=== PATIENT | male | born 1985 | race Caucasian/White ===

== ENCOUNTER 2018-02-01 08:20 | Emergency (ER) | payer OTHER, SELFPAY ==
[2018-02-01 08:38] VITALS: BP 126/72; PULSE 80; RESP 16; TEMP 37; O2SAT 100
--- NOTE | 2018-02-01 09:09 | ED.GENADULT ---
HPI - General Adult General Chief complaint: Diabetic Problem Stated complaint: PT STATES DIABETES Time Seen by Provider: 02/01/18 08:37 Source: patient Mode of arrival: ambulatory Limitations: no limitations History of Present Illness HPI narrative: Otherwise healthy 32-year-old insulin-dependent diabetic male here for evaluation. 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 Patient states that this has happened to him a couple times in the past but only recently. Patient states that he takes Novolin N 20 units in the morning and Novolin R 10 units at the same time and then goes in eats breakfast then takes Novolin R 3 to 5 units after lunch and Novolin R 3 to 5 units after dinner with a sliding scale of 2 units for every 50 above 150. Patient states that earlier this week he took his morning Novolin N and Novolin R dose. States that he ate breakfast. States that after that there was an episode where he apparently became hypoglycemic on the ship. [employer] was called. They came to the ship he says next thing he remembers is the [employer] being around him. He states that he was told that his blood sugar was less than 60. He was [employer] off off the ship. Is new to the area. Does not have a primary doctor. Was sent for evaluation by his company to come up with a plan. He is not scheduled to return to the ship for more than a month. Currently patient has no symptoms. Related Data Home Medications Medication Instructions Recorded Confirmed Novolin N NPH U-100 Insulin 20 unit SUB-Q DAILY 02/01/18 02/01/18 Novolin R Regular U-100 Insuln 10 unit SUB-Q TID 02/01/18 02/01/18 Previous Rx's Medication Instructions Recorded glucagon (human recombinant) 1 mg SUBCUT Q20M PRN #1 each 02/01/18 Allergies Allergy/AdvReac Type Severity Reaction Status Date / Time albuterol AdvReac Rash Verified 02/01/18 08:55 Review of Systems Constitutional Denies chills, Denies fever(s), Denies lethargy and Denies weakness Cardiovascular Denies chest pain, Denies irregular heart rhythm, Denies lightheadedness, Denies palpitations, Denies dyspnea, Denies dyspnea on exertion and Denies orthopnea Respiratory Denies cough, Denies dyspnea, Denies dyspnea on exertion and Denies wheezing Gastrointestinal Gastrointestinal: Denies abdominal pain, Denies change in bowel habits, Denies diarrhea, Denies nausea and Denies vomiting Musculoskeletal Denies back pain, Denies muscle weakness, Denies numbness and Denies tingling Integumentary/Breasts Denies pruritus, Denies erythema, Denies rash and Denies wounds Neurologic Denies numbness, Denies tingling and Denies weakness Endocrine Denies palpitations Hematologic/Lymphatic Denies easy bruising Allergic/Immunologic Denies wheezing [facility] Social History Smoking Status: Current every day smoker Exam Const General: cooperative and well developed Nutritional Appearance: well nourished Orientation: alert, awake, oriented x3 and not confused Resp Effort & Inspection: normal respiratory effort, able to speak in complete sentences, no respiratory distress and no use of accessory muscles Auscultation: clear to auscultation bilaterally, no rales, no rhonchi and no wheezes Cardio Rate: regular rate Rhythm: regular rhythm Heart Sounds: no click, no gallops, no murmurs and no rubs Pulses: normal peripheral pulses GI Inspection: non-distended Palpation: soft, no hepatosplenomegaly, No guarding, No pulsatile mass and No tender Auscultation: normal bowel sounds Skin General: no rashes or lesions noted, No jaundice and No petechiae Neuro General: alert, oriented x3, gait normal and no focal motor deficits Speech: speech normal Motor: strength 5/5 throughout Sensory Exam: no sensory deficits noted Extrem General: full ROM, no clubbing, cyanosis or edema, no pedal edema and no calf tenderness Medical Decision Making MDM Narrative Medical decision making narrative: Patient is currently asymptomatic. 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 After long discussion we discussed the importance of him finding a primary care doctor here in the area for long-term treatment of his diabetes. He expressed understanding. He does have an e-mail from his [email or web address] that states that they will help him find a doctor. Until then patient is not scheduled to return to the ship for greater than a month. We came up with a plan for him to change his insulin dosages around. It appears that both of the incidences on the ship were after his morning dose of insulin after breakfast but he was performing a job that required high amount of physical exertion. I suspect that his morning insulin doses are too much and that he is burning through his glucose does causing his issues. He states that his morning blood glucose level is normally between 70 and 110. These events of never happened after lunch or dinner. Decision was made for patient to continue his normal 20 units of Novolin N however to drop his dose of 10 units of Novolin R from 10-5 and then for him to monitor his glucose to see if he starts to run excessively high. Being that his job is in an [place] environment a feel that him running a little high when his glucose is better than him running too low. He was given return precautions. He expressed understanding of the plan. Course Last Vital Signs Temp 98.6 F 02/01/18 08:38 Pulse 80 02/01/18 08:38 Resp 16 02/01/18 08:38 BP 126/72 H 02/01/18 08:38 Pulse Ox 100 02/01/18 08:38 Discharge Plan Departure Patient Disposition: Home, Self-Care Clinical Impression: Diabetes mellitus Instructions: Complications of Diabetes (Alternative Therapy) Activity Restrictions/Additional Instructions: Like we discussed here in the emergency department is important that you find a local primary care doctor to help you with long-term management of your diabetes. The plan with going forward is for you to continue your 20 units of Novolin N in the morning but dropped the Novolin R dose to 5 units and then have breakfast. Monitor your blood sugars after this to see if you running excessively high. Would also recommend that your lunch and dinner dose of Novolin RU dropped to 3 units a with a sliding scale of 2 units for every 50 above 150. Monitor blood sugars closely as you do this. Return to the emergency department for any new or worsening symptoms Prescriptions: New glucagon (human recombinant) 1 mg kit 1 mg SUBCUT Q20M PRN (Reason: hypoglycemia) Qty: 1 RF: 0 No Action Novolin N NPH U-100 Insulin 20 unit Sub-Q DAILY RF: 0 Novolin R Regular U-100 Insuln 10 unit Sub-Q TID RF: 0
[2018-02-01 10:10] VITALS: BP 134/65; PULSE 83; O2SAT 98
== END 2018-02-01 10:12 | disposition home or self-care (01) ==
PROVIDERS: Emergency Provider Emergency Medicine
DX: E11.9 Type 2 diabetes mellitus without complications (principal)
CPT/HCPCS: 82962; 99282

== ENCOUNTER → 2018-03-10 12:29 | Outpatient (CLI) | payer BC, SELFPAY ==
[2018-03-10 13:03] LABS: Add Manual Diff / Slide Review NO; Basophils Percent Auto 0.6 % (0-2); Eosinophils Percent Auto 1.7 % (2-4); Hematocrit 43.9 % (41-53); Hemoglobin 15.3 g/dL (13.5-17.5); Mean Corpuscular HGB Conc 34.8 % (30-36); Monocytes Percent Auto 7.1 % (3-14); Neutrophils Absolute Auto 3800 /uL (3000-5900); Neutrophils Percent Auto 60.6 % (50-75); Platelet Count 262 X10^3/uL (150-400); Red Blood Cell Count 4.77 X10^6/uL (4.5-5.9); Red Cell Distribution Width 14.3 % (11.6-14.8); White Blood Cell Count 6.3 X10^3/uL (4.5-11.0)
[2018-03-10 13:14] LABS: Hemoglobin A1C% w Est Avg Glu 8.1 % (4.0-6.0)
[2018-03-10 13:43] LABS: Alanine Aminotransferase 21 IU/L (21-72); Albumin Globulin Ratio 1.3 (1.0-2.8); Alkaline Phosphatase 83 U/L (38-126); Aspartate Aminotransferase 19 IU/L (17-59); BUN Creatinine Ratio 23.8 (6-22); Bilirubin Total 1.1 mg/dL (0.2-1.3); Blood Urea Nitrogen 19 mg/dL (9-20); Calcium 9.9 mg/dL (8.4-10.2); Carbon Dioxide 31 mmol/L (22-32); Chloride 101 mmol/L (98-107); Cholesterol 184 mg/dL (140-199); Estimated Glomerular Filt Rate > 60.0 mL/min (>60); Glucose 62 mg/dL (70-100); HDL Cholesterol 76 mg/dL (40-60); HEMOLYSIS < 15 (0-50); LDL Cholesterol Calculated 89 mg/dL (<100); Potassium 4.4 mmol/L (3.4-5.1); Sodium 142 mmol/L (137-145); Triglycerides 97 mg/dL (35-150)
[2018-03-10 14:13] LABS: Thyroid Stimulating Hormone 1.39 uIU/mL (0.47-4.68)
[2018-03-10 15:23] LABS: Creatinine Urine Random 131.4 mg/dL
[2018-03-10 15:37] LABS: Microalbumi Creatinin Ratio Ur 4.5 ug/mg CR (<30); Microalbumin Urine Random < 0.6 mg/dL (0-1.6)
== END ==
PROVIDERS: Visit Provider Physician Assistant
DX: E10.9 Type 1 diabetes mellitus without complications (principal); E16.2 Hypoglycemia, unspecified
CPT/HCPCS: 36415; 80053; 80061; 82043; 82570; 83036; 84443; 85025

== ENCOUNTER 2020-09-06 22:17 | Emergency (ER) | payer BC, SELFPAY ==
[2020-09-06 22:25] VITALS: BP 153/82; PULSE 82; RESP 20; TEMP 36.8; O2SAT 100; BMI 33.5
--- NOTE | 2020-09-06 22:26 | DI.CT.S_ITS ---
PROCEDURE: CT HEAD/BRAIN WO CON INDICATIONS: fall, head injury, hematoma, lack of recall TECHNIQUE: Noncontrast 4.5 mm thick angled axial sections acquired from the foramen magnum to the vertex, with coronal and sagittal reformats. For radiation dose reduction, the following was used: automated exposure control, adjustment of mA and/or kV according to patient size. COMPARISON: None. FINDINGS: Image quality: Excellent. CSF spaces: Basal cisterns are patent. No extra-axial fluid collections. Ventricles are normal in size and shape. Brain: No midline shift. No intracranial masses or hemorrhage. Dowling-white matter interface is normal. Skull and face: Left frontal scalp swelling is seen. Calvarium and visualized facial bones are intact, without suspicious lesions. Sinuses: Retention cyst in left maxillary sinus is seen. Rest of the visualized sinuses and mastoids are clear. IMPRESSION: 1. No CT evidence of acute intracranial pathology. 2. Left frontal scalp swelling and small hematoma. No acute skull fracture. Retention cyst in left maxillary sinus. Dictated by: Jorge Henao M.D. on 09/07/2020 at 9:43 Approved by: Jorge Henao M.D. on 09/07/2020 at 9:44
--- NOTE | 2020-09-06 22:26 | ED_ITS ---
HPI - Psych General Chief Complaint: Psychiatric Symptoms Stated Complaint: Suicidal ideation, brought by [employer] Time Seen by Provider: 09/06/20 22:20 Source: patient and police Mode of arrival: other Limitations: no limitations History of Present Illness HPI Narrative: 34M smoker with history of DM presents by [employer] due to suicidal ideation. He lives at home with his and 2 kids. He had been drinking tonight and somehow things escalated and he became upset. His called PD and he was holding a knife to his belly, but did not injure himself. Please see [employer] note for details, but apparently he told them it was either him or them as he was holding a large knife to his abdomen. At some point he fell and hit his head, but doesn't remember. On arrival he is agreeable. He denies any pain or injury. He said he has been drinking a bit. He denies a mental health history or prior SI/attempt. When asked if he is suicidal he merely states i don't think i would say that. He denies SI/HI or desire for help. He denies what the police report. complaint: suicidal ideation Onset (ago): hour(s) Duration: constant History of same: No Relieving factors: none Exacerbating factors: none Context: recent alcohol abuse Associated psychiatric symptoms: suicidal ideation Associated symptoms: denies other symptoms Treatments prior to arrival: none Related Data Home Medications Medication Instructions Recorded Confirmed Novolin N NPH U-100 Insulin 20 unit SUB-Q DAILY 02/01/18 09/17/19 Novolin R Regular U-100 Insuln 10 unit SUB-Q TID 02/01/18 09/17/19 Previous Rx's Medication Instructions Recorded glucagon (human recombinant) 1 mg SUBCUT Q20M PRN #1 each 02/01/18 Glucose test strips #500 each 03/08/18 Allergies Allergy/AdvReac Type Severity Reaction Status Date / Time albuterol AdvReac Rash Verified 09/17/19 11:34 Review of Systems Constitutional Constitutional: Denies chills, Denies fatigue, Denies fever(s), Denies frequent falls, Denies lethargy and Denies weakness Eyes Eyes: Denies change in vision, Denies eye discharge, Denies irritation and Denies loss of vision ENT Ears, Nose, Mouth, and Throat: Denies change in voice, Denies dizziness, Denies neck pain, Denies sore throat and Denies throat swelling Cardiovascular Cardiovascular: Denies chest pain, Denies irregular heart rhythm, Denies lightheadedness, Denies palpitations, Denies dyspnea, Denies dyspnea on exertion and Denies orthopnea Respiratory Respiratory: Denies cough, Denies dyspnea, Denies dyspnea on exertion and Denies wheezing Gastrointestinal Gastrointestinal: Denies abdominal pain, Denies change in bowel habits, Denies diarrhea, Denies nausea and Denies vomiting Musculoskeletal Musculoskeletal: Denies neck pain and Denies numbness Integumentary/Breasts Skin/Breast: Denies pruritus, Denies erythema, Denies rash and Denies wounds Neurologic Neurologic: Denies behavioral changes, Denies confusion, Denies dizziness, Denies frequent falls, Denies loss of vision, Denies numbness and Denies w eakness Psychiatric Psychiatric: Denies anxiety, Denies behavioral changes, Denies confusion, Denies depression, Denies homicidal ideation and Denies suicidal ideation Endocrine Endocrine: Denies fatigue, Denies flushing and Denies palpitations Hematologic/Lymphatic Hematologic/Lymphatic: Denies easy bruising Allergic/Immunologic Allergic/Immunologic: Denies urticaria, Denies throat swelling and Denies wheezing Patient History Medical History Carpal tunnel syndrome Diabetes Vertigo Surgical History Hx of hand surgery (2001) Family History Grandfather Cancer Grandmother Diabetes mellitus Social History Smoking Status: Current every day smoker (1 pack per day) Tobacco: How many years used: 17 quit status: not considering quitting second hand exposure: Yes alcohol intake: current (4 cans of beer once a week) substance use type: former substance user (Marijuana - quit in early 2016) Smoking Status: Current every day smoker (1 pack per day) alcohol intake frequency: a few times a week Substance Use Type: does not use Exam Narrative Exam Narrative: GENERAL: [34] year old patient appears stated age. Well- nourished, well-developed patient, in mild distress. Mild slurring of words, GCS 15 HEAD: Left frontal contusion, no evidence of depressed skull fracture. EYES: Pupils equal round and reactive. Extraocular motions intact. No scleral icterus. No injection or drainage. ENT: Nose without bleeding, purulent drainage. Throat without erythema, tonsillar hypertrophy or exudate. Airway patent. NECK: Trachea midline. Non tender CARDIOVASCULAR: Regular rate and rhythm without murmurs, gallops, or rubs. RESPIRATORY: Clear to auscultation. Breath sounds equal bilaterally. No wheezes, rales, or rhonchi. GASTROINTESTINAL: Abdomen soft, non-tender, nondistended. EXTREMITIES: No edema or joint tenderness. BACK: Nontender swelling in upper back to the right of midline, no redness or warmth, patient states it has been there since a shoulder injury when he was 14 Nontender without deformity or crepitance. No flank tenderness. NEURO: AOx3. SKIN: No rash or erythema of visible areas Initial Vital Signs Initial Vital Signs: Vital Signs Temperature 98.3 F 09/06/20 22:25 Pulse Rate 82 09/06/20 22:25 Respiratory Rate 20 09/06/20 22:25 Blood Pressure 153/82 H 09/06/20 22:25 Pulse Oximetry 100 09/06/20 22:25 Course Course Course Narrative: patient resting comfortably. Given his suicidal comments to police and family along with act of holding knife to his belly along with his denial of the events would suggest he lacks insight, is not voluntary, and will require evaluation by DCR. He is medically cleared for psychiatric hospitalization. Orders Ordered: ED Orders 09/06/20 22:26 CT head/brain wo con Stat 09/06/20 22:40 Urine Drug Screen, Rapid Stat 09/06/20 23:10 Complete Blood Count AUTO DIFF Stat Comprehensive Metabolic Panel Stat Ethanol (ETOH) Stat Thyroid Stimulating Hormone Stat 09/07/20 04:29 COVID19 Stat Consultations Consultation #1: patient has been evaluated by DCR. Please see his note regarding findings. After lengthy discussion the circumstances would suggest alcohol. Voluntary team will check in with him. over the next few days. Vital Signs Vital signs: Vital Signs - 8 hr 09/06/20 22:25 Temperature 98.3 F Pulse Rate 82 Respiratory Rate 20 Blood Pressure 153/82 H Pulse Oximetry 100 [facility] - Psych Lab Data Result diagrams: 09/06/20 23:10 12/19/20 23:10 Labs: Lab Results 09/06/20 09/06/20 09/06/20 Range/Units 22:40 23:10 23:10 WBC 6.6 (4.5-11.0) X10^3/uL RBC 4.43 L (4.5-5.9) X10^6/uL Hgb 14.0 (13.5-17.5) g/dL Hct 41.8 (41-53) % MCV 94.2 (80-100) fL MCH 31.6 (26-34) PG MCHC 33.5 (30-36) % RDW 12.8 (11.6-14.8) % Plt Count 246 (150-400) X10^3/uL Neut % (Auto) 54.1 (50-75) % Lymph % (Auto) 34.3 (25-40) % [place] % (Auto) 8.1 (3-14) % Eos % (Auto) 2.6 (2-4) % Baso % (Auto) 0.9 (0-2) % Neut # (Auto) 3600 (4543-8785) /uL Lymph # (Auto) 2300 (3382-7373) /uL [place] # (Auto) 500 (0-900) /uL Eos # (Auto) 200 (0-450) /uL Baso # (Auto) 100 (0-100) /uL Sodium 140 (137-145) mmol/L Potassium 4.2 (3.4-5.1) mmol/L Chloride 105 (98-107) mmol/L Carbon Dioxide 32 (22-32) mmol/L BUN 16 (9-20) mg/dL Creatinine 0.92 (0.66-1.25) mg/dL Estimated GFR > 60.0 (>60) mL/min BUN/Creatinine Ratio 17.4 (6-22) Glucose 180 H (70-100) mg/dL Calcium 8.9 (8.4-10.2) mg/dL Total Bilirubin 0.3 (0.2-1.3) mg/dL AST 21 (17-59) IU/L ALT 18 (<50) IU/L Alkaline Phosphatase 62 (38-126) U/L Total Protein 6.6 (6.3-8.2) g/dL Albumin 4.0 (3.5-5.0) g/dL Globulin 2.6 (1.7-4.1) g/dL Albumin/Globulin Ratio 1.5 (1.0-2.8) TSH (0.47-4.68) uIU/mL U Opiates 300ng/mL cut Negative (Negative) Ur Oxycodone Screen Negative (Negative) Urine Methadone Screen Negative (Negative) Ur Barbiturates Screen Negative (Negative) U Tricyclic Antidepress Negative (Negative) Ur Phencyclidine Scrn Negative (Negative) Ur Amphetamines Screen Negative (Negative) U Methamphetamines Scrn Negative (Negative) Ur MDMA Scrn (Ecstasy) Negative (Negative) U Benzodiazepines Scrn Negative (Negative) Urine Cocaine Screen Negative (Negative) U Marijuana (THC) Screen Negative (Negative) Ethyl Alcohol 201 H ( - 10) mg/dL COVID-19 PCR (Negative) 09/06/20 09/07/20 Range/Units 23:10 05:28 WBC (4.5-11.0) X10^3/uL RBC (4.5-5.9) X10^6/uL Hgb (13.5-17.5) g/dL Hct (41-53) % MCV (80-100) fL MCH (26-34) PG MCHC (30-36) % RDW (11.6-14.8) % Plt Count (150-400) X10^3/uL Neut % (Auto) (50-75) % Lymph % (Auto) (25-40) % [place] % (Auto) (3-14) % Eos % (Auto) (2-4) % Baso % (Auto) (0-2) % Neut # (Auto) (9141-0119) /uL Lymph # (Auto) (4567-7335) /uL [place] # (Auto) (0-900) /uL Eos # (Auto) (0-450) /uL Baso # (Auto) (0-100) /uL Sodium (137-145) mmol/L Potassium (3.4-5.1) mmol/L Chloride (98-107) mmol/L Carbon Dioxide (22-32) mmol/L BUN (9-20) mg/dL Creatinine (0.66-1.25) mg/dL Estimated GFR (>60) mL/min BUN/Creatinine Ratio (6-22) Glucose (70-100) mg/dL Calcium (8.4-10.2) mg/dL Total Bilirubin (0.2-1.3) mg/dL AST (17-59) IU/L ALT (<50) IU/L Alkaline Phosphatase (38-126) U/L Total Protein (6.3-8.2) g/dL Albumin (3.5-5.0) g/dL Globulin (1.7-4.1) g/dL Albumin/Globulin Ratio (1.0-2.8) TSH 2.19 (0.47-4.68) uIU/mL U Opiates 300ng/mL cut (Negative) Ur Oxycodone Screen (Negative) Urine Methadone Screen (Negative) Ur Barbiturates Screen (Negative) U Tricyclic Antidepress (Negative) Ur Phencyclidine Scrn (Negative) Ur Amphetamines Screen (Negative) U Methamphetamines Scrn (Negative) Ur MDMA Scrn (Ecstasy) (Negative) U Benzodiazepines Scrn (Negative) Urine Cocaine Screen (Negative) U Marijuana (THC) Screen (Negative) Ethyl Alcohol ( - 10) mg/dL COVID-19 PCR Negative (Negative) Point of Care Testing Glucose POC [address] scan - head: Attestation: I personally reviewed and interpreted this imaging study as follows: My Impression: No bleed Radiologist's Impression: No traumatic findings MDM Narrative Medical decision making narrative: Patient feeling much better. Able to contract for safety. Will be contacted by outreach team later today. Going to work. coming to get him. return precautions given. Questions answered to his apparent satisfaction. Discharge Plan Departure Patient Disposition: Home Clinical Impression: Alcohol abuse Depression Qualifiers: Depression Type: major depressive disorder Major depression recurrence: single episode Active/Remission status: remission status unspecified Qualified Code(s): F32.9 - Major depressive disorder, single episode, unspecified Instructions: Alcohol Use Disorder, DI for Suicidal Ideation-Adult Activity Restrictions/Additional Instructions: *You have been diagnosed with [suicidal ideations while intoxicated] *What to do: * avoid drinking alcohol. Please add here to the safety planning discussed with the mental health provider. * please expect the mental health team to reach out daily for the next few days. *Return to ER if you should have any new, worsening or concerning symptoms *In addition to calling the Crisis Team you may also anonymously text to mental health specialists by sending a message to [phone]] Prescriptions: No Action (DME) Glucose test strips Qty: 500 RF: 1 Novolin N NPH U-100 Insulin 20 unit Sub-Q DAILY RF: 0 Novolin R Regular U-100 Insuln 10 unit Sub-Q TID RF: 0 glucagon (human recombinant) 1 mg kit 1 mg SUBCUT Q20M PRN (Reason: hypoglycemia) Qty: 1 RF: 0 Referrals: [facility] [Outside]
[2020-09-06 22:53] LABS: UR Morphine/Opiate cutoff 300 Negative (Negative); Ur Creatinine 10 (Normal); Ur Specific Gravity 1.015 (Normal); Urine Amphetamines Negative (Negative); Urine Barbiturates Negative (Negative); Urine Benzodiazepines Negative (Negative); Urine Cocaine Negative (Negative); Urine MDMA Negative (Negative); Urine Methadone Negative (Negative); Urine Methamphetamines Negative (Negative); Urine Oxycodone Negative (Negative); Urine Phencyclidine Negative (Negative); Urine Tetrahydrocannabinol Negative (Negative); Urine Tricyclic Antidepressant Negative (Negative); Urine pH 4 (Normal)
[2020-09-06 23:19] LABS: Add Manual Diff / Slide Review NO; Basophils Absolute Auto 100 /uL (0-100); Basophils Percent Auto 0.9 % (0-2); Eosinophils Absolute Auto 200 /uL (0-450); Eosinophils Percent Auto 2.6 % (2-4); Hematocrit 41.8 % (41-53); Lymphocytes Absolute Auto 2300 /uL (1100-4500); Lymphocytes Percent Auto 34.3 % (25-40); Mean Corpuscular HGB Conc 33.5 % (30-36); Mean Corpuscular Hemoglobin 31.6 PG (26-34); Mean Corpuscular Volume 94.2 fL (80-100); Monocytes Absolute Auto 500 /uL (0-900); Monocytes Percent Auto 8.1 % (3-14); Neutrophils Absolute Auto 3600 /uL (1500-7000); Neutrophils Percent Auto 54.1 % (50-75); Platelet Count 246 X10^3/uL (150-400); Red Blood Cell Count 4.43 X10^6/uL (4.5-5.9); Red Cell Distribution Width 12.8 % (11.6-14.8); White Blood Cell Count 6.6 X10^3/uL (4.5-11.0)
[2020-09-06 23:27] LABS: Alanine Aminotransferase 18 IU/L (<50); Albumin Globulin Ratio 1.5 (1.0-2.8); Alkaline Phosphatase 62 U/L (38-126); Aspartate Aminotransferase 21 IU/L (17-59); BUN Creatinine Ratio 17.4 (6-22); Bilirubin Total 0.3 mg/dL (0.2-1.3); Blood Urea Nitrogen 16 mg/dL (9-20); Calcium 8.9 mg/dL (8.4-10.2); Carbon Dioxide 32 mmol/L (22-32); Chloride 105 mmol/L (98-107); Estimated Glomerular Filt Rate > 60.0 mL/min (>60); Ethanol (ETOH) 201 mg/dL; Globulin 2.6 g/dL (1.7-4.1); Glucose 180 mg/dL (70-100); HEMOLYSIS < 15 (0-50); Potassium 4.2 mmol/L (3.4-5.1); Sodium 140 mmol/L (137-145); Total Protein 6.6 g/dL (6.3-8.2)
[2020-09-07 00:15] LABS: Thyroid Stimulating Hormone 2.19 uIU/mL (0.47-4.68)
--- NOTE | 2020-09-07 00:30 | PC.NURSE ---
Pt lying down, resting, resps even/unlabored.
[2020-09-07 05:52] LABS: COVID19 -Nasal RAPID Negative (Negative)
[2020-09-07 06:56] VITALS: BP 132/77; PULSE 84; RESP 20; TEMP 36.7; O2SAT 96
--- NOTE | 2020-09-07 07:28 | PC.NURSE ---
Late entry: Pt slept through the night, was cooperative with care while awake. Spoke with FERNANDA Perry via video-conferencing and plan to go home with followup care. Sharlene is agreeable.
== END 2020-09-07 06:52 | disposition home or self-care (01) ==
PROVIDERS: Emergency Provider Emergency Medicine
DX: F10.129 Alcohol abuse with intoxication, unspecified (principal); Y90.7 Blood alcohol level of 200-239 mg/100 ml; F32.9 Major depressive disorder, single episode, unspecified; Z20.828 Contact with and (suspected) exposure to other viral communicable diseases; S09.90XA Unspecified injury of head, initial encounter; W19.XXXA Unspecified fall, initial encounter; E11.9 Type 2 diabetes mellitus without complications
CPT/HCPCS: 36415; 70450; 80053; 80305; 80320; 82962; 84443; 85025; 87635; 99285

== ENCOUNTER 2022-08-12 07:56 | Emergency (ER) | payer BC, SELFPAY ==
[2022-08-12 08:12] VITALS: BP 120/61; PULSE 66; RESP 18; TEMP 36.4; O2SAT 98; BMI 31.1
[2022-08-12 08:15] VITALS: PULSE 64; O2SAT 99
[2022-08-12 08:16] VITALS: BP 120/61; PULSE 65; O2SAT 99
[2022-08-12] MEDS: PROPARACAINE 0.5% OPHTH SOL 1 DROPS EYE-LEFT (08:26)
[2022-08-12] MEDS: FLUORESCEIN 1 MG STRIP EYE-BOTH (08:26)
[2022-08-12 08:30] VITALS: BP 127/64; PULSE 62; O2SAT 99
--- NOTE | 2022-08-12 08:37 | ED_ITS ---
HPI - General Adult General Chief complaint: Eye Problems Stated complaint: left eye injury Time Seen by Provider: 08/12/22 08:15 Source: patient Mode of arrival: Ambulatory Limitations: no limitations History of Present Illness HPI narrative: 36-year-old male. Wears corrective lenses. Does not wear contacts. No prior eye surgeries. Here for evaluation of left eye irritation. He states that a just over 24 hours ago while lying in bed his accidentally scratched his left eye. He is had pain and irritation redness since then. No interventions prior to arrival. Is having photophobia. Problems opening his eye. Clear drainage. Related Data Home Medications Medication Instructions Recorded Confirmed Novolin N NPH U-100 Insulin 20 unit SUBCUT DAILY diabetes 02/01/18 09/17/19 Novolin R Regular U-100 Insuln 10 unit SUBCUT TID 02/01/18 09/17/19 Previous Rx's Medication Instructions Recorded glucagon (human recombinant) 1 mg 1 mg SUBCUT Q20M PRN hypoglycemia 02/01/18 injection kit #1 ea Glucose test strips #500 ea 03/08/18 erythromycin 5 mg/gram (0.5 %) eye 0.5 inch EYE-LEFT TID 2 days #3.5 08/12/22 ointment grams Allergies Allergy/AdvReac Type Severity Reaction Status Date / Time albuterol AdvReac Rash Verified 09/17/19 11:34 Review of Systems Constitutional Constitutional: Reports system reviewed and no additional complaints, except as documented Eyes Eyes: Reports system reviewed and no additional complaints, except as documented ENT Ears, Nose, Mouth, and Throat: Reports system reviewed and no additional complaints, except as documented Integumentary/Breasts Skin/Breast: Reports system reviewed and no additional complaints, except as documented Patient History Medical History Carpal tunnel syndrome Diabetes Vertigo Surgical History Hx of hand surgery (2001) Family History Grandfather Cancer Grandmother Diabetes mellitus Social History Smoking Status: Current every day smoker (1 pack per day) Tobacco: How many years used: 17 quit status: not considering quitting second hand exposure: Yes alcohol intake: current (4 cans of beer once a week) substance use type: former substance user (Marijuana - quit in early 2016) Smoking Status: Current every day smoker (1 pack per day) alcohol intake frequency: a few times a week Alcohol type: hard liquor Substance Use Type: does not use Exam Initial Vital Signs Initial Vital Signs: Vital Signs Temperature 97.5 F L 08/12/22 08:12 Pulse Rate 66 08/12/22 08:12 Respiratory Rate 18 08/12/22 08:12 Blood Pressure 120/61 08/12/22 08:12 Pulse Oximetry 98 08/12/22 08:12 Oxygen Delivery Method 08/12/22 08:12 Const General: cooperative and comfortable HENMT Head: normal to inspection Eyes Other: Right eyes unremarkable. Left eye has no foreign body. Has a linear corneal abrasion without signs of ulceration. Fluorescein was used. Skin General: no rashes or lesions noted Course Orders Ordered: Discontinued Medications Erythromycin (Erythromycin Ophth 1 Gm Oint) 1 applic EYE-LEFT NOW ONE Stop: 08/12/22 08:38 Fluorescein Sodium (Fluorescein 1 Mg Strip) 1 mg EYE-BOTH NOW ONE Stop: 08/12/22 08:24 Last Admin: 08/12/22 08:26 Dose: 1 mg Documented By: NR Proparacaine HCl (Proparacaine 0.5% Ophth Ximena) 1 drops EYE-LEFT NOW ONE Stop: 08/12/22 08:24 Last Admin: 08/12/22 08:26 Dose: 1 drop Documented By: NR Vital Signs Vital signs: Vital Signs - 8 hr 08/12/22 08:12 Temperature 97.5 F L Pulse Rate 66 Respiratory Rate 18 Blood Pressure 120/61 Pulse Oximetry 98 Oxygen Delivery Method Room Air Medical Decision Making MDM Narrative Medical decision making narrative: No foreign body. Left-sided corneal abrasion without signs of ulceration. This does fit his history and physical. Will send home with erythromycin ointment. He is given return precautions and follow-up instructions. He expressed understanding and agreement. Discharge Plan Departure Patient Disposition: Home Clinical Impression: Corneal abrasion Instructions: DI for Corneal Abrasion Activity Restrictions/Additional Instructions: You can take Tylenol/ibuprofen for any discomfort. Erythromycin ointment which is an antibiotic was sent to [facility]. Unfortunately they are the only pharmacy open today. Use it as directed. Return to the emergency department for any new or worsening symptoms. Prescriptions: New erythromycin 5 mg/gram (0.5 %) ointment 0.5 inch EYE-LEFT TID 2 Days Qty: 3.5 0RF No Action (DME) Glucose test strips Qty: 500 1RF Dose Instruction: As directed Rx Instructions: Testing 3-5 times a day Novolin N NPH U-100 Insulin 20 unit Sub-Q DAILY Novolin R Regular U-100 Insuln 10 unit Sub-Q TID glucagon (human recombinant) 1 mg kit 1 mg SUBCUT Q20M PRN (Reason: hypoglycemia) Qty: 1 0RF Rx Instructions: until response
--- NOTE | 2022-08-12 09:21 | PC.NURSE ---
pt left prior to getting medication but was heading straight to pharmacy for medications and was instructed to use it upon getting it. provider notified
== END 2022-08-12 08:55 | disposition home or self-care (01) ==
PROVIDERS: Emergency Provider Emergency Medicine
DX: S05.02XA Injury of conjunctiva and corneal abrasion without foreign body, left eye, initial encounter (principal); X58.XXXA Exposure to other specified factors, initial encounter
CPT/HCPCS: 99282